=== PATIENT | male | born 1940 ===

== ENCOUNTER 2017-02-11 08:59 | Outpatient (CLI) | payer MEDICARE, OTHER | END 2017-02-11 09:00 | disposition home or self-care (01) | LOC: NAVSJIPCSP 08:59 | PROVIDERS: ATTEND Internal Medicine | DX: E78.5 Hyperlipidemia, unspecified (principal) | CPT/HCPCS: 36415; 80061 ==

== ENCOUNTER 2017-07-08 09:11 | Outpatient (CLI) | payer MEDICARE, OTHER ==
[2017-07-08 12:29] LABS: Cardiac Risk 2.9 (Less than 4.5)
== END 2017-07-08 09:12 | disposition home or self-care (01) ==
LOC: NAVSJIPCSP 09:11
PROVIDERS: ATTEND Internal Medicine
DX: E78.5 Hyperlipidemia, unspecified (principal)
CPT/HCPCS: 36415; 80061